=== PATIENT | female | born 1980 | race Caucasian/White ===

== ENCOUNTER 2022-02-15 20:21 | Emergency (ER) | payer OTHER, BC ==
[~2022-02-15] VITALS: Ht 160 cm; Wt 67.6 kg
[2022-02-15 20:36] VITALS: BP 118/86
--- NOTE | 2022-02-15 20:43 | NUR ---
PT TAKEN TO BED 1
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
[2022-02-15] MEDS ORDERED: KETOROLAC 15 MG/ML VIAL IM ONE (21:20)
[2022-02-15] MEDS ORDERED: methocarbamoL 500 MG TAB PO ONE (21:20)
--- NOTE | 2022-02-15 21:44 | NUR ---
RADIOLOGY AT BEDSIDE
[2022-02-15] MEDS ORDERED: IBUP-2213 PO (22:35)
[2022-02-15] MEDS ORDERED: METH-1681 PO (22:35)
[2022-02-15 23:15] VITALS: BP 118/86
--- NOTE | 2022-02-15 23:15 | NUR ---
Patient discharged with v/s stable. Written and verbal after care instructions given and explained. Patient alert, oriented and verbalized understanding of instructions. Ambulatory with steady gait. All questions addressed prior to discharge. ID band removed. Patient advised to follow up with PMD. Rx of Robaxin, motrin given. Patient educated on indication of medication including possible reaction and side effects. Opportunity to ask questions provided and answered.
== END 2022-02-15 23:15 | disposition home or self-care (01) ==
LOC: MED 20:21
DX: S20.219A Contusion of unspecified front wall of thorax, initial encounter (principal); S80.02XA Contusion of left knee, initial encounter; M25.561 Pain in right knee; V89.2XXA Person injured in unspecified motor-vehicle accident, traffic, initial encounter; Y93.89 Activity, other specified; Y92.410 Unspecified street and highway as the place of occurrence of the external cause; Y99.8 Other external cause status
CPT/HCPCS: 71045; 96372; 99283; J1885; Q0092